=== PATIENT | female | born 1990 | race African-American/Black ===

== ENCOUNTER 2019-03-06 17:42 | Emergency (ER) | payer OTHER ==
[~2019-03-06] VITALS: Ht 170.2 cm; Wt 70.3 kg
--- NOTE | 2019-03-06 17:53 | NUR ---
[id number]/PD FOR WITNESSED SEIZURE LIKE ACTIVITY WHILE IN A PRINTED [employer] CAR, VERBALLY RESPONSIVE [employer]IST. -OBVIOUS ORAL TRAUMA, TO ER BED 13, HOOKED TO MONITOR, CHANGED TO GOWN, PROVIDED W WARM BLANKET, AWAITING MD ROE
--- NOTE | 2019-03-06 17:54 | NUR ---
DR BERNARDO AT BEDSIDE
[2019-03-06 18:15] LABS: BASOPHILS % (AUTO) 0.8 % (0.0-2.0); EOSINOPHILS % (AUTO) 3.3 % (0.0-6.0); HEMATOCRIT 30 % (33-45); HEMOGLOBIN 9.4 g/dL (11.5-14.8); LYMPHOCYTES # (AUTO) 1.4 /CMM (0.8-4.8); LYMPHOCYTES % (AUTO) 25.2 % (20.0-44.0); MEAN CORPUSCULAR HGB CONC 31 g/dl (31.0-36.0); MEAN CORPUSCULAR VOLUME 67 fL (82-100); MONOCYTES # (AUTO) 0.5 /CMM (0.1-1.30); MONOCYTES % (AUTO) 8.3 % (2.0-12.0); NEUTROPHILS # (AUTO) 3.4 /CMM (1.8-8.9); NEUTROPHILS % (AUTO) 62.4 % (43.0-81.0); PLATELET COUNT (AUTO) 245 /CMM (150-450); RED BLOOD CELL COUNT(AUTO) 4.52 MIL/uL (4.0-5.2); WHITE BLOOD COUNT (AUTO) 5.5 K/uL (4.3-11.0)
[2019-03-06 18:24] LABS: CALCIUM, SERUM 8.4 mg/dL (8.5-10.1); CARBON DIOXIDE 25 mmol/L (21-32); CHLORIDE 103 mmol/L (98-107); CREATININE 0.7 mg/dL (0.6-1.3); GLUCOSE 98 mg/dL (74-106); POTASSIUM 3.5 mmol/L (3.5-5.1); SODIUM SERUM 136 mmol/L (136-145); UREA NITROGEN, BLOOD 9 mg/dL (7-18)
[2019-03-06 18:30] LABS: ALANINE AMINOTRANSFERASE 17 U/L (12-78); ALBUMIN 3.5 g/dL (3.4-5.0); ALCOHOL, BLOOD < 3 mg/dL (0-0); ALKALINE PHOSPHATASE 69 U/L (46-116); ASPARTATE AMINOTRANSFERASE 15 U/L (15-37); BILIRUBIN,TOTAL 0.2 mg/dL (0.2-1.0); TOTAL PROTEIN, SERUM 7.2 g/dL (6.4-8.2)
[2019-03-06 18:32] LABS: PHENYTOIN (DILANTIN) < 0.5 ug/ml (10.0-20.0)
--- NOTE | 2019-03-06 19:10 | NUR ---
REPORT GIVEN TO DOTTIE RENE FOR MARTY
--- NOTE | 2019-03-06 19:13 | NUR ---
PT RECEIVED IN BED SLEEPING EASILY ARROUSABLE. NAD NOTED. [employer] AT BEDSIDE
[2019-03-06] MEDS ORDERED: ONDANSETRON 4 MG TAB.RAPDIS ONE ×2 (19:23→19:31)
[2019-03-06] MEDS ORDERED: PHENYTOIN EXTENDED RELEASE 100 MG CAPSULE PO ONE ×4 (19:30→22:00)
[2019-03-06] MEDS ORDERED: ONDANSETRON 4 MG TAB.RAPDIS SL ONE (19:30)
--- NOTE | 2019-03-06 20:50 | NUR ---
PT AMBULATED AROUND THE BED, TOLERATED WELL WITH MIN ASSIST. FOOD ALSO GIVENT O PT. AWARE
[2019-03-06] MEDS ORDERED: ACETAMINOPHEN ES 500 MG TABLET ONE (21:49)
[2019-03-06] MEDS ORDERED: ONDANSETRON HCL/PF 4 MG/2 ML VIAL ONE (21:49)
[2019-03-06] MEDS ORDERED: ACETAMINOPHEN ES 500 MG TABLET PO ONE (22:00)
[2019-03-06] MEDS ORDERED: ONDANSETRON HCL/PF - ER 4 MG/2 ML VIAL IV ONE (22:00)
--- NOTE | 2019-03-06 22:11 | NUR ---
DILANTIN 500MG ORDERED BY . 4 X 100MG CAP DILANTIN ER AVAILABLE AT ER [facility] AND 1 X 100MG CAP DILANTIN ER TAKEN FROM [facility] D/T INCOMPLETE DOSE AVAILABILITY AT ER [facility].
--- NOTE | 2019-03-06 22:16 | NUR ---
Ok to book. aPatient discharged to home in stable condition. Written and verbal after care instructions given. Patient verbalizes understanding of instruction.IV removed. Catheter intact and site benign. Pressure and 4x4 applied to site. No bleeding noted. Pt ambulatory with a steady gait
[2019-03-06 22:19] VITALS: BP 112/75
== END 2019-03-06 22:20 ==
LOC: ER 17:46
DX: R56.9 Unspecified convulsions (principal)
CPT/HCPCS: 36415; 80048; 80076; 80185; 80307; 84702; 85025; 93005; 96374; 99284; J2405; Q0162; G0480